=== PATIENT | male | born 1955 | race Caucasian/White ===

== ENCOUNTER 2020-11-29 17:06 | Emergency (ER) | payer MEDICARE, SELFPAY ==
[2020-11-29] MEDS ORDERED: Insulin Regular 300 UNITS/3 ML VIAL ONE (17:26)
[2020-11-29] MEDS ORDERED: Ondansetron PF 4 MG/2 ML Vial ONE (17:26)
[2020-11-29 17:46] LABS: #Basophils 0.1 thou/uL (0.0-0.2); #Eosinphils 0.1 thou/uL (0.0-0.7); #Lymphocytes 0.7 thou/uL (1.20-3.40); #Monocytes 0.7 thou/uL (0.11-0.59); #Neutrophils 6.9 thou/uL (1.40-6.50); %Basophils 0.9 % (0.0-1.0); %Eosinophils 1.1 % (0.0-10.0); Hemoglobin 12.2 g/dL (14.0-18.0); Mean Corpuscular HGB CONC 35.2 g/dL (32.0-36.0); Mean Corpuscular Hemoglobin 32.4 pg (27.0-31.0); Mean Corpuscular Volume 92.2 fL (78.0-98.0); Mean Platelet Volume 7.3 fL (7.4-10.4); Platelet Count 154 thou/uL (130-400); RBC Distribution Width 11.3 % (11.5-14.5); Red Blood Cell (RBC) Count 3.77 mill/uL (4.70-6.10); White Blood Cell (WBC) Count 8.4 thou/uL (4.8-10.8)
[2020-11-29 17:49] LABS: Bilirubin Negative (Negative); Blood, Urine Negative (Negative); Clarity Clear (Clear); Glucose, Urine (Dipstick) >=1000 mg/dL (Negative); Ketone, Urine Negative (Negative); Leukocyte Negative (Negative); Nitrite Negative (Negative); Protein, Urine (Dipstick) Negative (Neg-Trace); Urobilinogen 0.2 mg/dL (Less than 2)
[2020-11-29 17:50] LABS: Specific Gravity, Urine 1.031 (1.002-1.036)
[2020-11-29] MEDS ORDERED: Potassium Chloride 20 MEQ TAB ONE ×2 (17:51→19:33)
[2020-11-29 17:56] LABS: Base Excess-Venous -6.7 mmol/L (-2.0 to 3.0); Bicarbonate (HCO3v) 17.9 mmol/L (22.0-28.0); CO2 Tension (PvCO2) 31.6 mmHg (42.0-51.0); Calcium, Ionized 0.83 mmol/L (1.15-1.33); Chloride 104 mmol/L (98-107); Hemoglobin - Calc 9.4 g/dL (14.0-18.0); Potassium 2.5 mmol/L (3.5-5.1); Sodium 140 mmol/L (138-145); T. Carbon Dioxide 18.9 mmol/L (22.0-28.0); vO2 Saturation-calc 53.6 % (60.0-85.0)
[2020-11-29 17:58] LABS: ALT (SGPT) 23 U/L (8-55); AST (SGOT) 11 U/L (5-34); Albumin 2.4 g/dL (3.4-4.8); Alkaline Phosphatase 96 U/L (40-110); Anion Gap 15 mmol/L (10-20); BUN (Urea Nitrogen) 10 mg/dL (8.4-25.7); Bilirubin, Total 0.8 mg/dL (0.2-1.2); Calc. Creatinine Clearance 0 mL/min (70-130); Carbon Dioxide 18 mmol/L (23-31); Chloride 107 mmol/L (98-107); Globulin 2.1 g/dL (2.4-3.5); Magnesium 1.4 mg/dL (1.6-2.6); Protein, Total 4.5 g/dL (5.8-8.1); Sodium 137 mmol/L (136-145)
[2020-11-29 18:00] LABS: Calcium 5.9 mg/dL (7.8-10.44); Glucose 608 mg/dL (80-115); Potassium 2.7 mmol/L (3.5-5.1)
[2020-11-29] MEDS ORDERED: Calcium Gluc 4.6 MEQ/10 ML (100 MG/ML) ONE (19:33)
[2020-11-29] MEDS ORDERED: Magnesium 2 GM/50 ML BAG (IN WATER) ONE (19:33)
== END 2020-11-29 20:10 | disposition short-term general hospital (02) ==
LOC: BURERS 17:06
DX: E11.65 Type 2 diabetes mellitus with hyperglycemia (principal); E87.6 Hypokalemia; E83.42 Hypomagnesemia; E83.51 Hypocalcemia; D64.9 Anemia, unspecified; F10.10 Alcohol abuse, uncomplicated; I10 Essential (primary) hypertension; Z91.14 Patient's other noncompliance with medication regimen
CPT/HCPCS: 36416; 80053; 81003; 82330; 82803; 83605; 83735; 84484; 85025; 93005; 96365; 96366; 96368; 96375; 96376; J1815; J2001; J2405; J3475